=== PATIENT | male | born 1960 | race Hispanic/Latino ===

== ENCOUNTER 2017-12-23 14:48 | Emergency (ER) | payer BC ==
[~2017-12-23] VITALS: Ht 172.7 cm; Wt 83.9 kg
== END 2017-12-23 16:06 | disposition home or self-care (01) ==
LOC: FSED 14:48
DX: R10.30 Lower abdominal pain, unspecified (principal); N30.91 Cystitis, unspecified with hematuria
CPT/HCPCS: 87086; 99283